=== PATIENT | male | born 1955 | race Caucasian/White ===

== ENCOUNTER 2016-10-20 13:26 | Day surgery (SDC) | payer OTHER ==
[~2016-10-20] VITALS: Ht 182.9 cm; Wt 102.6 kg
[~2016-10-20 13:26] MED LIST: ATOR20TA38 PO; CALC-516 PO; COLC0.6T6 PO; HYDR12.58 PO; LOSA100T7 PO; METO25TA7 PO; PANT40TA3 PO; TAMS-14 PO; TIOT18CA IH
[2016-10-20 14:14] VITALS: Ht 182.9 cm; Wt 102.6 kg
[2016-10-20] MEDS ORDERED: TIOT18CA INHALATION (14:25)
[2016-10-20] MEDS ORDERED: CALCIUM CARBONATE PO (14:25)
[2016-10-20] MEDS ORDERED: AMLO-147 PO (14:25)
[2016-10-20] MEDS ORDERED: PANT40TA4 PO (14:25)
[2016-10-20] MEDS ORDERED: LOSA100T7 PO (14:27)
[2016-10-20 14:48] VITALS: BP 143/87; PULSE 78; RESP 12
[2016-10-20] MEDS ORDERED: PROPOFOL 40 ML ONE (15:27)
[2016-10-20 16:43] VITALS: BP 139/72; PULSE 68; RESP 17
--- NOTE | 2016-10-20 19:46 | GILP ---
DATE OF PROCEDURE: NAME OF PROCEDURES: 1. Esophagogastroduodenoscopy and biopsy. 2. Colonoscopy and biopsy. SURGEON: Josue Xie MD PREOPERATIVE DIAGNOSES: 1. Abdominal pain. 2. Family history of gastric cancer. 3. Screening colonoscopy. POSTOPERATIVE DIAGNOSES: 1. Gastritis. 2. Gastric nodules on the body of the stomach, and biopsies were taken for histopathology. 3. Polyp on the gastric antrum, the prepyloric area, and biopsies were taken for histopathology. 4. Colonoscopy all the way to the cecum. 5. Small sigmoid colon polyp was removed. 6. Internal hemorrhoids. INDICATION FOR THE PROCEDURES: Mr. Max Mata is a 61-year-old male patient who had upper a bdominal pain and chronic heartburn not responding to therapy. The patient had family history of ga stric cancer. He also needed screening colonoscopy. The procedures and possible complications were well explained to the patient. He understood and con sented to the procedures. DESCRIPTION OF PROCEDURE: Under the influence of anesthesia, the gastroscope was carefully introduc ed into the esophagus, and under direct vision, it was advanced to the stomach and through the pylor us into duodenal bulb and descending duodenum. FINDINGS: ESOPHAGUS: The mucosa was normal. STOMACH: The patient had gastric nodules on the body of the stomach, and biopsies were taken for hi stopathology. The patient also had a gastric polyp on the gastric antrum, and biopsies were taken f or histopathology. DUODENUM: Normal. The colonoscope was carefully introduced in the rectum, and under direct vision, it was advanced all the way to the cecum. FINDINGS: The patient had a small sigmoid colon polyp, and it was removed using the biopsy forceps. He had internal hemorrhoids. He tolerated the procedures very well. There was no complication from the procedures. At the end o f the procedures, he was awake with stable vital signs, and he was discharged home to care of his [facility]. IMPRESSION: Please see postoperative diagnosis. PLAN: 1. Continue pantoprazole. 2. Add Zantac 300 mg p.o. at bedtime. 3. Await histopathology reports. 4. Next screening colonoscopy in 10 years. Dictated By: JOSUE ALBERTS/NHAN Conf#: [id number] DID#: [id number]
== END 2016-10-20 16:21 | disposition home or self-care (01) ==
LOC: GIL 13:26
PROVIDERS: ATTEND Internal Medicine Gastroenterology
DX: Z12.11 Encounter for screening for malignant neoplasm of colon (principal); K63.5 Polyp of colon; K29.30 Chronic superficial gastritis without bleeding; B96.81 Helicobacter pylori [H. pylori] as the cause of diseases classified elsewhere; K64.8 Other hemorrhoids; K31.7 Polyp of stomach and duodenum; Z80.0 Family history of malignant neoplasm of digestive organs; K21.9 Gastro-esophageal reflux disease without esophagitis; E78.5 Hyperlipidemia, unspecified; I10 Essential (primary) hypertension; E66.9 Obesity, unspecified; Z68.30 Body mass index [BMI] 30.0-30.9, adult; N40.0 Benign prostatic hyperplasia without lower urinary tract symptoms
CPT/HCPCS: 43239; 45380; 88305; 88312; Z7610